=== PATIENT | female | born 1990 | race Caucasian/White ===

== ENCOUNTER 2018-02-25 15:44 | Emergency (ER) | payer SELFPAY ==
[2018-02-25 15:58] VITALS: BP 140/97
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
== END 2018-02-25 16:50 | disposition home or self-care (01) ==
LOC: UCEAST 15:44
DX: S81.812A Laceration without foreign body, left lower leg, initial encounter (principal); W25.XXXA Contact with sharp glass, initial encounter; Y93.89 Activity, other specified; Y92.89 Other specified places as the place of occurrence of the external cause
CPT/HCPCS: 99201; G0463

== ENCOUNTER 2018-02-28 11:07 | Emergency (ER) | payer MEDICAID ==
[2018-02-28 11:37] VITALS: BP 124/79
--- NOTE | 2018-02-28 13:03 | UC ---
Skin Complaint HPI - HPI Summary HPI Summary: 27 y/.o female s/p laceration in [place] to her L lower leg, sutured with 2 sutures in [place] n 02/18/2018, was seen i [facility] to have removed, however felt not well healed. patient noted increased redness around sutures with mild clear drainage, no pain, no difficulty walking - History of Current Complaint Chief Complaint: UCSkin Time Seen by Provider: 02/28/18 12:50 Stated Complaint: SUTURE REMOVAL Hx Obtained From: Patient Hx Last Menstrual Period: 02/17/18 ?: No Onset/Duration: Sudden Onset, Lasting Days Skin Exposure Onset/Duration: Days Ago Timing: Constant Pain Intensity: 4 - Allergy/Home Medications Allergies/Adverse Reactions: Allergies Allergy/AdvReac Type Severity Reaction Status Date / Time No Known Allergies Allergy Verified 02/28/18 11:37 Review of Systems Is Patient Immunocompromised?: No All Other Systems Reviewed And Are Negative: Yes PMH/Surg Hx/FS Hx/Imm Hx Previously Healthy: Yes - Surgical History Surgical History: Yes Surgery Procedure, Year, and Place: broke nose in 5th grade - Family History Family History: noncontributory - Social History Alcohol Use: Rare Substance Use Type: None Smoking Status (MU): Never Smoked Tobacco - Immunization History Vaccination Up to Date: Yes Physical Exam Triage Information Reviewed: Yes Appearance: Well-Appearing, No Pain Distress, Well-Nourished Vital Signs: Initial Vital Signs Temp 99.1 F 02/28/18 11:31 Pulse 72 02/28/18 11:31 Resp 18 02/28/18 11:31 BP 124/79 02/28/18 11:31 Pulse Ox 100 02/28/18 11:31 Neurological Exam: Normal Skin: Positive: Other - 2 sutures seen at L lower anterior quijano, eryteham around insertion sites, mild clear drainage noted, poor approximation of skin closure Course/Dx - Course Course Of Treatment: 2 sutures removed without difficulty, steri strips placed, continue bacitracin F/U as needed - Diagnoses Provider Diagnoses: suture removal Discharge - Sign-Out/Discharge Documenting (check all that apply): Patient Departure All imaging exams completed and their final reports reviewed: No Studies - Discharge Plan Condition: Good Disposition: HOME Referrals: No Primary Care Phys,NOPCP [Primary Care Provider] - Additional Instructions: - Bacitracin to wound daily in evening - Steri-strips will fall off on own. - Ok to shower, no bathing/ submerging wound until no drainage noted - Return to ER/ urgent care if wound opens - Billing Disposition and Condition Condition: GOOD Disposition: Home
== END 2018-02-28 13:15 | disposition home or self-care (01) ==
LOC: UCEAST 11:07
DX: S81.812D Laceration without foreign body, left lower leg, subsequent encounter (principal); X58.XXXD Exposure to other specified factors, subsequent encounter
CPT/HCPCS: 99211; G0463